=== PATIENT | female | born 1995 | race African-American/Black ===

== ENCOUNTER 2020-02-12 03:12 | Emergency (ER) | payer SELFPAY ==
--- NOTE | 2020-02-12 04:29 | ER Document Report ---
ED Medical Screen (RME) - General Chief Complaint: Back Pain Stated Complaint: BACK PAIN - HPI Notes: 02/12/20 04:27 24-year-old female presents to the ER with pain at her coccyx region for about 1 week. It hurts when she sits. She denies any trauma. Patient took naproxen yesterday. Denies any history of abscesses. No fevers or chills. Tachycardic in triage. 02/12/20 04:29 Physical Exam - Vital signs Vitals: Temp Pulse Resp BP Pulse Ox 97.8 F 127 H 19 144/92 H 100 02/12/20 03:19 02/12/20 03:19 02/12/20 03:19 02/12/20 03:19 02/12/20 03:19 - General General appearance: Appears well Notes: VITAL SIGNS: Tachycardic. GENERAL: No acute distress, non-toxic appearance. MUSCULOSKELETAL: Ambulatory to triage with normal gait HEAD: Normal with no signs of head trauma. GENITOURINARY: Discomfort to palpation at top of gluteal cleft with concern for induration. No obvious abscess. No erythema. Course - Re-evaluation Re-evalutation: 02/12/20 04:34 02/12/20 04:39 Patient may have developing abscess at gluteal cleft. Full examination of area was not able to be performed in triage. Initial lab work was ordered. I have greeted and performed a rapid initial assessment of the patient. Comprehensive ED assessment and evaluation of patient, analysis of test results and completion of medical decision making process will be conducted by additional ED providers. - Vital Signs Vital signs: Temp Pulse Resp BP Pulse Ox 97.8 F 127 H 19 144/92 H 100 02/12/20 03:19 02/12/20 03:19 02/12/20 03:19 02/12/20 03:19 02/12/20 03:19
[2020-02-12] MEDS ORDERED: OXYCODONE-ACETAMINOPHEN 5-325 MG TABLET PO ONE (05:51)
[2020-02-12] MEDS ORDERED: CEPHALEXIN 500 MG CAPSULE PO ONE (05:51)
[2020-02-12] MEDS ORDERED: PROMETHAZINE HCL 25 MG TABLET PO ONE (05:51)
[2020-02-12] MEDS ORDERED: SULFAMETHOXAZOLE/TRIMETHOPRIM 800-160 MG TABLET PO ONE (05:51)
--- NOTE | 2020-02-12 05:55 | ER Document Report ---
HPI - HPI Time Seen by Provider: 02/12/20 05:31 Pain Level: 4 Context: Patient is a 24-year-old female comes emergency department for chief complaint of pain to the right upper gluteal cleft area for approximately 1 week. She states it hurts to sit down. She denies any injury to the area but she does report the area feels swollen. She denies history of the same. She denies fever/chills, nausea/vomiting, . Patient states she took Naprosyn yesterday without any relief. She denies any daily medications or diagnosed medical history. - REPRODUCTIVE LMP: 01/27/20 Reproductive: DENIES: : Past Medical History - General Information source: Patient - Social History Smoking Status: Never Smoker Frequency of alcohol use: None Drug Abuse: None Lives with: Family Family History: Reviewed & Not Pertinent - Medical History Medical History: Negative Surgical Hx: Negative - Immunizations Immunizations up to date: Yes Hx Diphtheria, Pertussis, Tetanus Vaccination: Yes Vertical Provider Document - CONSTITUTIONAL General Appearance: WD/WN, No Apparent Distress - HEENT HEENT: Atraumatic, Normocephalic - NECK Neck: Normal Inspection - RESPIRATORY Respiratory: Breath Sounds Normal, No Respiratory Distress - CARDIOVASCULAR Cardiovascular: Regular Rate, Regular Rhythm. negative: Tachycardia - GI/ABDOMEN Gastrointestinal: Abdomen Soft, Abdomen Non-Tender - BACK Back: Normal Inspection - MUSCULOSKELETAL/EXTREMETIES Musculoskeletal/Extremeties: MAEW, FROM, Non-Tender - NEURO Level of Consciousness: Awake, Alert, Appropriate Motor/Sensory: No Motor Deficit, No Sensory Deficit - DERM Integumentary: Warm, Dry, No Rash, Abscess - Indurated area over the right upper gluteal cleft just below the top of the gluteal cleft. There is no extension down to the rectum, there is no fluctuant head, there is no streaking away from the area. The area is tender. No concerning findings otherwise. Course - Re-evaluation Re-evalutation: Patient was very convinced that somehow she had injured her sacrum/coccyx. She was very anxious about this initially, however she is not tachycardic on my exam. However she denies any trauma, she has no bruising, she has no tenderness over the coccyx. She does however have an area that is indurated over the upper gluteal cleft however this was slightly below where I would expect pilonidal cyst abscess to be. There is no overt erythema, there is no fluctuance, there is only mild induration. Area is significantly tender to the touch and warm however. Consistent with infection. Patient is extremely opposed to drainage, instead of exploring/aspiration the area was evaluated with a bedside ultrasound but I did not see any abscess or fluid collection. As result patient will be placed on antibiotics, perform warm compresses, I discussed care, monitoring, follow-up, return precautions. Patient states understanding and agreement. - Vital Signs Vital signs: Temp Pulse Resp BP Pulse Ox 97.8 F 127 H 19 144/92 H 100 02/12/20 03:19 02/12/20 03:19 02/12/20 03:19 02/12/20 03:19 02/12/20 03:19 Discharge - Discharge Clinical Impression: Skin infection Lower back pain Qualifiers: Chronicity: acute Back pain laterality: right Sciatica presence: without sciatica Qualified Code(s): M54.5 - Low back pain Condition: Stable Disposition: HOME, SELF-CARE Additional Instructions: Your evaluation indicates an infection in the painful area although no drainable abscess is seen at this time. Take the antibiotics as prescribed to completion, apply warm compresses to the area several times a day and keep the area clean with soap and water, dry the area carefully after each cleaning. Follow-up with primary care for additional management. Return for any concerning symptoms including severe worsening pain, swelling or spreading redness to the area, developing fever, or any other concerning symptoms. Prescriptions: Sulfamethoxazole/Trimethoprim [Bactrim Ds Tablet] 1 each PO BID #14 tablet Cephalexin Monohydrate [Keflex 500 mg Capsule] 500 mg PO QID #28 capsule Forms: Return to Work
[2020-02-12 06:12] VITALS: BP 130/76
== END 2020-02-12 06:29 | disposition home or self-care (01) ==
LOC: ER 03:12
DX: L08.9 Local infection of the skin and subcutaneous tissue, unspecified (principal); M54.5 Low back pain
CPT/HCPCS: 81025; 99283